=== PATIENT | female | born 1975 | race Caucasian/White ===

== ENCOUNTER 2017-10-29 03:08 | Emergency (ER) | payer BC ==
[2017-10-29 03:27] VITALS: BMI 27.8
--- NOTE | 2017-10-29 04:03 | PDOC ---
History of Present Illness - General Chief Complaint: Sore Throat Stated Complaint: BODY ACHES,SORE THROAT Time Seen by Provider: 10/29/17 04:02 History Source: Patient - History of Present Illness Initial Comments: 10/29/17 04:27 42 year old female with sore throat, bodyaches and tactile temps at home x 1 day. 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 + nausea denies vomiting, diarrhea, abdominal pain, urinary symptoms. 10/29/17 04:31 Past History - Past Medical History Allergies/Adverse Reactions: Allergies Allergy/AdvReac Type Severity Reaction Status Date / Time No Known Allergies Allergy Verified 10/29/17 03:24 Home Medications: Ambulatory Orders Vit/Fe Fumarate/FA [ Plus Tablet] 1 cap PO DAILY 11/14/11 Ferrous Sulfate [Feosol] 325 mg PO DAILY 09/16/13 Levothyroxine [Synthroid -] 50 mcg PO DAILY 09/16/13 Acetaminophen [Tylenol .Regular Strength -] 650 mg PO Q4H PRN #30 tablet Ibuprofen [Motrin -] 600 mg PO Q4H PRN #30 tablet 09/20/13 Phenol/Glycerin [Chloraseptic Max [place]] 30 ml MM BID #1 spray 10/29/17 Asthma: No Cancer: No Cardiac Disorders: No Diabetes: No HTN: No Seizures: No Thyroid Disease: Yes - Suicide/Smoking/Psychosocial Hx Smoking Status: No Smoking History: Never smoked Have you smoked in the past 12 months: No Number of Cigarettes Smoked Daily: 0 Information on smoking cessation initiated: No Hx Alcohol Use: No Drug/Substance Use Hx: No Hx Substance Use Treatment: No Review of Systems - Review of Systems Able to Perform ROS?: Yes Is the patient limited Pashto proficient: No Constitutional: Yes: Fever, Other (bodyaches) HEENTM: Yes: Throat Pain, Throat Swelling. No: Symptoms Reported, See HPI, Eye Pain, Blurred Vision, Tearing, Recent change in vision, Double Vision, Cataracts , Ear Pain, Ocular Prothesis, Ear Discharge, Nose Pain, Nose Congestion, Tinnitus, Nose Bleeding, Hearing Loss, Mouth Pain, Dental Problems, Difficulty Swallowing, Mouth Swelling, Other Respiratory: No: Symptoms reported, See HPI, Cough, Orthopnea, Shortness of Breath, SOB with Exertion, SOB at Rest, Stridor, Wheezing, Productive cough, Hemoptysis, Other Cardiac (ROS): No: Symptoms Reported, See HPI, Chest Pain, Edema, Irregular Heart Rate, Lightheadedness, Palpitations, Syncope, Chest Tightness, Other *Physical Exam - Vital Signs Last Vital Signs Temp Pulse Resp BP Pulse Ox 98.5 F 105 H 14 121/70 97 10/29/17 03:24 10/29/17 03:24 10/29/17 03:24 10/29/17 03:24 10/29/17 03:24 - Physical Exam General Appearance: Yes: Appropriately Dressed HEENT: positive: Tonsillar Erythema (mild tonisillar edema. ) Neck: positive: Lymphadenopathy (R), Lymphadenopathy (L) Respiratory/Chest: positive: Lungs Clear, Normal Breath Sounds Cardiovascular: positive: Regular Rhythm, Tachycardia Gastrointestinal/Abdominal: positive: Normal Bowel Sounds, Soft Integumentary: positive: Normal Color, Dry, Warm Neurologic: positive: Fully Oriented, Alert, Normal Mood/Affect *DC/Admit/Observation/Transfer Diagnosis at time of Disposition: Flu-like symptoms Pharyngitis Qualifiers: Pharyngitis/tonsillitis etiology: unspecified etiology Qualified Code(s): J02.9 - Acute pharyngitis, unspecified - Discharge Dispostion Disposition: HOME - Prescriptions Prescriptions: Phenol/Glycerin [Chloraseptic Max [place]] 30 ml MM BID #1 spray - Referrals Referrals: Vernell Ramesh MD [Primary Care Provider] - Call tomorrow - Patient Instructions Printed Discharge Instructions: Sore Throat Additional Instructions: gargle with warm salty water. take ibuprofen every 6 hours as needed for pain drink plenty of water follow up with your doctor as soon as possible. - Post Discharge Activity Forms/Work/School Notes: Back to Work
[2017-10-29] MEDS ORDERED: ACETAMINOPHEN 325 MG TABLET (FP) PO ONE (04:04)
--- NOTE | 2017-10-29 04:29 | PDOC ---
*Physical Exam - Vital Signs Last Vital Signs Temp Pulse Resp BP Pulse Ox 98.5 F 105 H 14 121/70 97 10/29/17 03:24 10/29/17 03:24 10/29/17 03:24 10/29/17 03:24 10/29/17 03:24 Medical Decision Making - Medical Decision Making 10/29/17 04:28 agree with care from JC Morris *DC/Admit/Observation/Transfer Diagnosis at time of Disposition: Flu-like symptoms, Pharyngitis - Discharge Dispostion Disposition: HOME - Prescriptions Prescriptions: Phenol/Glycerin [Chloraseptic Max [place]] 30 ml MM BID #1 spray - Referrals Referrals: Vernell Ramesh MD [Primary Care Provider] - Call tomorrow - Patient Instructions Printed Discharge Instructions: Sore Throat Additional Instructions: gargle with warm salty water. take ibuprofen every 6 hours as needed for pain drink plenty of water follow up with your doctor as soon as possible. - Post Discharge Activity Forms/Work/School Notes: Back to Work
[2017-10-29] MEDS ORDERED: ACETAMINOPHEN 325 MG TABLET (FP) ONE (04:30)
[2017-10-29 05:19] VITALS: BP 113/89; PULSE 97; TEMP 97.9
== END 2017-10-29 05:28 | disposition home or self-care (01) ==
LOC: JER 03:08
DX: J11.1 Influenza due to unidentified influenza virus with other respiratory manifestations (principal)
CPT/HCPCS: 87070; 87077; 87430; 87804; 99281-25

== ENCOUNTER 2018-11-16 11:14 | Emergency (ER) | payer BC ==
[2018-11-16 11:21] VITALS: BP 118/64; PULSE 108; TEMP 98.2; BMI 27.4
--- NOTE | 2018-11-16 12:03 | PDOC ---
History of Present Illness - General Chief Complaint: Headache Stated Complaint: HEADACHE Time Seen by Provider: 11/16/18 11:34 History Source: Patient Exam Limitations: No Limitations Past History - Past Medical History Allergies/Adverse Reactions: Allergies Allergy/AdvReac Type Severity Reaction Status Date / Time No Known Allergies Allergy Verified 10/29/17 03:24 Home Medications: Ambulatory Orders Vit/Fe Fumarate/FA [ Plus Tablet] 1 cap PO DAILY 11/14/11 Ferrous Sulfate [Feosol] 325 mg PO DAILY 09/16/13 Levothyroxine [Synthroid -] 50 mcg PO DAILY 09/16/13 Acetaminophen [Tylenol .Regular Strength -] 650 mg PO Q4H PRN #30 tablet Ibuprofen [Motrin -] 600 mg PO Q4H PRN #30 tablet 09/20/13 Phenol/Glycerin [Chloraseptic Max [place]] 30 ml MM BID #1 spray 10/29/17 Fluticasone Prop 0.05% Nasal [Flonase -] 1 - 2 spray NS DAILY #1 spray.pump Pseudoephedrine HCl [Sudafed] 60 mg PO Q6H PRN #30 tablet 11/16/18 Asthma: No Cancer: No Cardiac Disorders: No COPD: No Diabetes: No HTN: No Seizures: No Thyroid Disease: Yes - Immunization History Immunization Up to Date: Yes - Suicide/Smoking/Psychosocial Hx Smoking Status: No Smoking History: Never smoked Have you smoked in the past 12 months: No Number of Cigarettes Smoked Daily: 0 Hx Alcohol Use: No Drug/Substance Use Hx: No Hx Substance Use Treatment: No *Physical Exam - Vital Signs Last Vital Signs Temp Pulse Resp BP Pulse Ox 98.2 F 108 H 18 118/64 99 11/16/18 11:18 11/16/18 11:18 11/16/18 11:18 11/16/18 11:18 11/16/18 11:18 - Physical Exam General Appearance: No: Apparent Distress HEENT: positive: Nasal Congestion, Sinus Tenderness (+frontal and maxillary ( mild)), Other (No purulent drainage). negative: Muffled/Hoarse voice, Pharyngeal Erythema, Tonsillar Exudate, Tonsillar Erythema, Rhinorrhea Respiratory/Chest: positive: Lungs Clear, Normal Breath Sounds. negative: Respiratory Distress Cardiovascular: positive: Regular Rhythm, Regular Rate, S1, S2. negative: Murmur Gastrointestinal/Abdominal: positive: Normal Bowel Sounds, Soft. negative: Tender, Distended, Guarding, Rebound Integumentary: positive: Normal Color Neurologic: positive: Alert, Normal Mood/Affect Moderate Sedation - Procedure Monitoring Vital Signs: Procedure Monitoring Vital Signs Temperature 98.2 F 11/16/18 11:18 Pulse Rate 108 H 11/16/18 11:18 Respiratory Rate 18 11/16/18 11:18 Blood Pressure 118/64 11/16/18 11:18 O2 Sat by Pulse Oximetry (%) 99 11/16/18 11:18 Medical Decision Making - Medical Decision Making 43 y/o F hx of chronic allergies presents with body aches from 3 days ago which resolved with OTC meds, but then the next day, having c/o frontal CHAPA (pressure- like) along with nasal congestion and rhinorrhea. Denies fever, cough, sob, cp, abd pain, n/v. Takes Benadryl for her allergies, which is the only thing that helps. Likely sinusitis (viral in origin given afebrile) Supportive care discussed stable for dc 11/16/18 11:54 *DC/Admit/Observation/Transfer Diagnosis at time of Disposition: Sinusitis Qualifiers: Sinusitis location: frontal Chronicity: acute - Discharge Dispostion Disposition: HOME Condition at time of disposition: Stable Decision to Admit order: No - Prescriptions Prescriptions: Fluticasone Prop 0.05% Nasal [Flonase -] 1 - 2 spray NS DAILY #1 spray.pump Pseudoephedrine HCl [Sudafed] 60 mg PO Q6H PRN #30 tablet PRN Reason: Nasal Congestion - Referrals Referrals: Vernell Ramesh MD [Primary Care Provider] - 2 Days - Patient Instructions Printed Discharge Instructions: DI for Sinusitis Additional Instructions: Thank you for choosing [facility]. It was a pleasure taking care of you. Take Flonase spray - use it for 1 week. Do not use manufacturing analyst as it can worsen your congestion Use Nedi-Pot and saline nasal spray as well to help with congestion Take Sudafed as well to help with congestion Follow-up with your doctor in 2-3 days. Return to the Emergency Department if your symptoms worsen or persist or have other concerning symptoms. - Post Discharge Activity
== END 2018-11-16 12:06 | disposition home or self-care (01) ==
LOC: JERFT 11:14
DX: J01.10 Acute frontal sinusitis, unspecified (principal)
CPT/HCPCS: 99281-25

== ENCOUNTER 2021-10-16 05:18 | Emergency (ER) | payer BC ==
[2021-10-16 06:06] VITALS: BP 109/62; PULSE 92; TEMP 98; BMI 28.3
[2021-10-16] MEDS ORDERED: DEXAMETHASONE LIQUID 0.5 MG/5 ML PO ONE (07:29)
[2021-10-16] MEDS ORDERED: IBUPROFEN 600 MG TABLET (FP) PO ONE ×2 (07:29→07:37)
[2021-10-16] MEDS ORDERED: DEXAMETHASONE SOD PHOSPHATE 10 MG/1 ML VIAL ONE (07:37)
[2021-10-20 23:15] LABS: SARS-CoV-2 NAA Detected (Not Detected)
== END 2021-10-16 08:53 | disposition home or self-care (01) ==
LOC: JER 05:18
DX: M79.10 Myalgia, unspecified site (principal); R05.1 Acute cough; J02.9 Acute pharyngitis, unspecified
CPT/HCPCS: 87070; 87077; 87804; 99283-25; C9803-CS; U0003; U0005

== ENCOUNTER 2022-01-30 13:03 | Emergency (ER) | payer BC ==
[2022-01-30 13:26] VITALS: BP 117/76; PULSE 120; TEMP 98.1; BMI 28.1
[2022-01-30] MEDS ORDERED: MAG HYDROX/ALH/SMC/DPHA/LIDO 240 ML MOUTHWASH MM ONE (13:47)
[2022-01-31 12:08] LABS: SARS-CoV-2 NAA Not Detected (Not Detected)
== END 2022-01-30 14:24 | disposition home or self-care (01) ==
LOC: JER 13:03
DX: R09.82 Postnasal drip (principal); R05.1 Acute cough; J01.10 Acute frontal sinusitis, unspecified
CPT/HCPCS: 87804; 99283-25; C9803-CS; U0003; U0005

== ENCOUNTER 2022-11-10 06:03 | Day surgery (SDC) | payer BC ==
[2022-11-05 15:21] VITALS: BMI 27.1
[2022-11-10] MEDS ORDERED: SUCCINYLCHOLINE CHLORIDE 200 MG/10 ML SYRINGE ONE (07:13)
[2022-11-10] MEDS ORDERED: MIDAZOLAM HCL 2 MG/2 ML SINGLE DOSE VIAL ONE (07:13)
[2022-11-10] MEDS ORDERED: PROPOFOL 20 ML ONE (07:13)
[2022-11-10] MEDS ORDERED: EPINEPHrine 1:1,000 1,000 MCG/ML ML ONE (07:14)
[2022-11-10] MEDS ORDERED: BUPIVACAINE HCL/PF 2.5 MG/ML - 30 ML VIAL IJ ONE (07:14)
[2022-11-10] MEDS ORDERED: ceFAZolin SODIUM 1 GM VIAL ONE (07:45)
[2022-11-10] MEDS ORDERED: ONDANSETRON 4 MG/2 ML VIAL ONE (07:45)
[2022-11-10] MEDS ORDERED: DEXAMETHASONE SOD PHOSPHATE 4 MG/1 ML VIAL ONE (07:45)
[2022-11-10] MEDS ORDERED: KETOROLAC TROMETHAMINE 30 MG/1 ML VIAL ONE (08:17)
[2022-11-10] MEDS ORDERED: ONDANSETRON 4 MG/2 ML VIAL IVPUSH PRN (08:25)
[2022-11-10] MEDS ORDERED: oxyCODONE HCL 5 MG TABLET PO PRN (08:25)
[2022-11-10] MEDS ORDERED: FENTANYL CITRATE/PF 50 MCG/ML VIAL ONE ×3 (08:26→09:04)
[2022-11-10] MEDS ORDERED: LACTATED RINGERS SOLUTION 1,000 ML IV SCH (08:30)
[2022-11-10] MEDS ORDERED: PROMETHAZINE HCL 25 MG/1 ML VIAL ONE (09:50)
[2022-11-10 10:15] VITALS: RESP 16; TEMP 97.6
[2022-11-10] MEDS ORDERED: oxyCODONE HCL 5 MG TABLET ONE (10:43)
[2022-11-10 11:32] VITALS: BP 114/61; PULSE 78
== END 2022-11-10 11:25 | disposition home or self-care (01) ==
LOC: FASU 06:03
PROVIDERS: ATTEND Orthopaedic Surgery Sports Medicine
PROC: 0SBD4ZZ Excision of Left Knee Joint, Percutaneous Endoscopic Approach (ICD-10-PCS; principal; 2022-11-10 08:00)
DX: S83.282A Other tear of lateral meniscus, current injury, left knee, initial encounter (principal); X58.XXXA Exposure to other specified factors, initial encounter; Y93.9 Activity, unspecified; Y92.9 Unspecified place or not applicable; M94.262 Chondromalacia, left knee
CPT/HCPCS: 81025; 94760

== ENCOUNTER 2023-01-04 10:56 | Emergency (ER) | payer BC ==
[2023-01-04 11:24] VITALS: BMI 25.8
[2023-01-04] MEDS ORDERED: IBUPROFEN 600 MG TABLET (FP) PO ONE ×2 (12:15→12:20)
[2023-01-04] MEDS ORDERED: ACETAMINOPHEN 325 MG TABLET (FP) PO ONE (14:29)
[2023-01-04] MEDS ORDERED: ACETAMINOPHEN 500 MG TABLET (FP) ONE (14:42)
[2023-01-04 14:55] VITALS: BP 105/64; RESP 19; TEMP 97.8
[2023-01-04] MEDS ORDERED: AMOX TR/POT CLAV 875MG/125MG TABLETS (FP) PO ONE (15:38)
[2023-01-04] MEDS ORDERED: AMOX TR/POT CLAV 875MG/125MG TABLETS (FP) ONE (15:45)
[2023-01-04 15:47] VITALS: PULSE 107
== END 2023-01-04 15:49 | disposition home or self-care (01) ==
LOC: JER 10:56 → JERFT 10:56
DX: J18.9 Pneumonia, unspecified organism (principal); J02.0 Streptococcal pharyngitis; Z20.822 Contact with and (suspected) exposure to COVID-19
CPT/HCPCS: 0241U-QW; 71046-TC-FY; 87651; 99284-25

== ENCOUNTER 2023-12-29 22:42 | Emergency (ER) | payer BC ==
[2023-12-29 22:46] VITALS: BP 119/66; RESP 18; TEMP 99.5; BMI 26.1
[2023-12-30] MEDS ORDERED: DEXAMETHASONE SOD PHOSPHATE 10 MG/1 ML VIAL ONE (00:09)
[2023-12-30] MEDS ORDERED: IBUPROFEN 600 MG TABLET (FP) PO ONE (00:10)
[2023-12-30] MEDS: DEXAMETHASONE SOD PHOSPHATE 10 MG/1 ML VIAL IM ONE (00:14)
[2023-12-30] MEDS: IBUPROFEN 600 MG TABLET (FP) PO ONE (00:14)
[2023-12-30] MEDS ORDERED: ONDANSETRON *ODT* 4 MG TABLET ONE (00:20)
[2023-12-30 00:30] VITALS: PULSE 114
[2023-12-30] MEDS: ONDANSETRON *ODT* 4 MG TABLET SL ONE (00:33)
== END 2023-12-30 00:33 | disposition home or self-care (01) ==
LOC: JERFT 22:42
PROC: 3E023GC Introduction of Other Therapeutic Substance into Muscle, Percutaneous Approach (ICD-10-PCS; principal; 2023-12-30)
DX: J06.9 Acute upper respiratory infection, unspecified (principal); B34.9 Viral infection, unspecified; R05.9 Cough, unspecified; R51.9 Headache, unspecified; R09.81 Nasal congestion; M79.10 Myalgia, unspecified site; Z20.822 Contact with and (suspected) exposure to COVID-19
CPT/HCPCS: 0241U-QW; 87651; 99284-25; J1100; Q0162